=== PATIENT | female | born 2000 | race Hispanic/Latino ===

== ENCOUNTER 2021-01-28 08:56 | Emergency (ER) | payer SELFPAY ==
[~2021-01-28] VITALS: Ht 162.6 cm; Wt 79.4 kg
[2021-01-28] MEDS ORDERED: ONDANSETRON HCL INJ 2MG/ML 2ML 2 MG/ML VIAL IV STA (10:04)
[2021-01-28] MEDS ORDERED: FAMOTIDINE 20 MG/2 ML VIAL IV STA (10:05)
[2021-01-28] MEDS ORDERED: SODIUM CHLORIDE 0.9% 1000ML 1,000 ML IV SCH (10:15)
[2021-01-28] MEDS ORDERED: DONNATAL/LIDOCAINE/MAALOX 30 ML SUSP PO ONE (10:15)
[2021-01-28] MEDS ORDERED: ONDANSETRON HCL INJ 2MG/ML 2ML 2 MG/ML VIAL ONE (10:30)
[2021-01-28] MEDS ORDERED: SODIUM CHLORIDE 0.9% 1000ML 1,000 ML ONE (10:31)
[2021-01-28] MEDS ORDERED: FAMOTIDINE 20 MG/2 ML VIAL IV ONE (10:31)
[2021-01-28] MEDS ORDERED: LIDOCAINE VISC 2% SOLN 15 ML UDC ONE (10:32)
[2021-01-28] MEDS ORDERED: BELLADONNA ALK/PHENOBARBITAL 5 ML UDC ONE (10:32)
[2021-01-28] MEDS ORDERED: MAGNESIUM/ALUMINUM/SIMETHICONE 30 ML UDC ONE (10:32)
[2021-01-28 10:34] LABS: BASOPHILS # (AUTO) 0.1 (0.0-0.1); EOSINOPHILS # (AUTO) 0.1 (0.0-0.4); HEMATOCRIT 40.1 % (34.2-44.1); HEMOGLOBIN 13.9 g/dL (12.0-16.0); LYMPHOCYTES # (AUTO) 2.6 (1.0-3.2); LYMPHOCYTES % 25.9 % (18.0-39.1); MEAN CORPUSCULAR HEMOGLOBIN 30.6 pg (28-32); MEAN CORPUSCULAR HGB CONC 34.7 g/dL (31-35); MEAN CORPUSCULAR VOLUME 88.3 fL (81-99); MONOCYTES # (AUTO) 0.5 (0.2-0.8); MONOCYTES % 5.5 % (4.4-11.3); NEUTROPHILS # (AUTO) 6.5 (2.1-6.9); NEUTROPHILS % 66.2 % (38.7-80.0); PLATELET COUNT 305 x10e3/uL (140-360); RED BLOOD COUNT 4.54 x10e6/uL (3.6-5.1); RED CELL DISTRIBUTION WIDTH 12.5 % (11.7-14.4)
[2021-01-28] MEDS ORDERED: FAMOTIDINE20 MG PO (12:13)
[2021-01-28] MEDS ORDERED: ONDANSETRON ODT4 MG PO (12:15)
[2021-01-28] MEDS ORDERED: ONDANSETRON HCL4 MG PO (13:17)
[2021-01-28] MEDS ORDERED: FAMOTIDINE40 MG PO (13:18)
== END 2021-01-28 12:24 | disposition home or self-care (01) ==
LOC: FSED 09:35
DX: R10.13 Epigastric pain (principal); R11.2 Nausea with vomiting, unspecified; K29.70 Gastritis, unspecified, without bleeding
CPT/HCPCS: 36415; 80048; 80076; 81003; 81025; 85025; 99284; J2405; J7030

== ENCOUNTER 2021-03-14 16:11 | Emergency (ER) | payer MEDICARE ==
[~2021-03-14] VITALS: Ht 154.9 cm; Wt 84.4 kg
[~2021-03-14 16:11] MED LIST: FAMOTIDINE20 MG PO; FAMOTIDINE40 MG PO; ONDANSETRON HCL4 MG PO; ONDANSETRON ODT4 MG PO
[2021-03-14] MEDS ORDERED: PROVENTIL HFA6.7 GM INH (16:34)
== END 2021-03-14 17:05 | disposition home or self-care (01) ==
LOC: FSED 16:14
DX: R05 Cough (principal); R06.02 Shortness of breath; J06.9 Acute upper respiratory infection, unspecified; J45.909 Unspecified asthma, uncomplicated; E28.2 Polycystic ovarian syndrome
CPT/HCPCS: 99282